=== PATIENT | female | born 1995 | race American Indian/Alaskan Native ===

== ENCOUNTER 2021-11-02 17:44 | Emergency (ER) | payer SELFPAY ==
[2021-11-02 18:05] VITALS: BP 118/78
== END 2021-11-02 20:03 | disposition left against medical advice (07) ==
LOC: ED 17:44
DX: O26.891 Other specified pregnancy related conditions, first trimester (principal); R11.0 Nausea; R06.02 Shortness of breath; Z3A.01 Less than 8 weeks gestation of pregnancy; Z53.21 Procedure and treatment not carried out due to patient leaving prior to being seen by health care provider

== ENCOUNTER 2022-05-01 12:31 | Outpatient (CLI) | payer MEDICAID ==
[2022-05-01 13:21] VITALS: BP 107/68
[2022-05-01] MEDS ORDERED: LACTATED RINGERS 500 ML IV ONE (13:48)
[2022-05-01] MEDS ORDERED: LACTATED RINGERS 1,000 ML ONE (13:49)
[2022-05-01] MEDS ORDERED: TERBUTALINE 1 MG/1 ML INJ ONE (15:05)
[2022-05-01] MEDS ORDERED: TERBUTALINE 1 MG/1 ML INJ SUB-Q SCH (16:00)
[2022-05-01 16:20] LABS: Bilirubin,Urine NEG (Negative); Blood,Urine NEG (Negative); Color,Urine Amber (Yellow)
[2022-05-01 16:23] LABS: Bacteria,Urine 1+ /HPF (Negative); Mucus,Urine FEW /HPF
[2022-05-01 16:28] LABS: Amphetamine Screen,Urine Negative; Benzodiazepines Screen,Urine Negative; Cocaine Screen,Urine Negative; Methadone Screen,Urine Negative; Opiate Screen,Urine Negative
[2022-05-01 17:01] LABS: Cannabinoid Screen,Urine Positive
== END 2022-05-01 16:41 | disposition home or self-care (01) ==
LOC: TRG 12:31 → APU 12:33 → TRG 16:41
PROVIDERS: ATTEND Student in an Organized Health Care Education/Training Program
DX: O62.9 Abnormality of forces of labor, unspecified (principal); O26.893 Other specified pregnancy related conditions, third trimester; R11.0 Nausea; O99.013 Anemia complicating pregnancy, third trimester; D64.9 Anemia, unspecified; Z3A.33 33 weeks gestation of pregnancy
CPT/HCPCS: 59025; 80307; 81001; 87086; 96372; J3105; 96360